=== PATIENT | female | born 1995 | race American Indian/Alaskan Native ===

== ENCOUNTER 2017-02-01 12:37 | Inpatient (IN) | payer MEDICAID ==
[2017-02-01] MEDS ORDERED: LACTATED RINGERS 1,000 ML ONE (12:54)
[2017-02-01] MEDS ORDERED: BRETHINE SUB-Q PRN (13:01)
[2017-02-01] MEDS ORDERED: XYLOCAINE 2% INFILTRATI ONE ×2 (13:01→19:11)
[2017-02-01] MEDS ORDERED: ZOFRAN IV PRN (13:01)
[2017-02-01] MEDS ORDERED: ePHEDrine SULFATE IV PRN ×2 (13:01→16:05)
[2017-02-01] MEDS ORDERED: SUBLIMAZE IV PRN (13:01)
[2017-02-01] MEDS ORDERED: POLYCILLIN/NS 2 GM/100 ML 2 GM/100 ML BAG IV ONE (13:01)
[2017-02-01] MEDS ORDERED: STADOL IV PRN (13:01)
[2017-02-01] MEDS ORDERED: MINERAL OIL PO PRN (13:01)
--- NOTE | 2017-02-01 13:11 | History and Physical Report ---
History of Present Illness Date of examination: 02/01/17 Date of admission: 02/01/17 12:37 Chief complaint: Patient sent to hospital from office for labor. Patient is GBS + and desires epidural. History of present illness: EDC Calculations by LMP LMP: 01/31/2017 Past History : 2 Term Births: 1 Premature Births: 0 Living Children: 1 Para: 1 Mult. Births: 0 Prev : 0 Prev. attempt? 0 Aborta: 0 Elect. Ab: 0 Spont. 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 of genital herpes: no Partner hx. of genital herpes: no Genetic History Congenital Heart Defect: Mom: no Dad: no Lea Disease: Mom: no Dad: no Thalassemia Mom: no Dad: no Neural Tube Defect Mom: no Dad: no Down's Syndrome Mom: no Dad: no Estevan-Sachs Mom: no Dad: no Sickle Cell Disease/Trait Mom: no Dad: no Hemophilia Mom: no Dad: no Muscular Dystrophy Mom: no Dad: no Cystic Fibrosis Mom: no Dad: no Fowler Chorea Mom: no Dad: no Mental Retardation Mom: no Dad: no Fragile X Mom: no Dad: no Other Genetic/Chromosomal Disorder Mom: no Dad: no Child w/other defect Mom: no Dad: no Enviromental Exposures Xray Exposure: no Medication, drug, or alcohol use since LMP: no Chemical/Other Exposure: no Exposure to Cat Liter: no Hx of Parvovirus (Fifth Disease): no Active Medications: PROMETHAZINE HCL 12.5 MG TABS (PROMETHAZINE HCL) 1 po q6 prn nausea FORMULA 27-1 MG ORAL TABS ( VIT-FE FUMARATE-FA) 1 po q day as directed TABS ( VIT-FE FUMARATE-FA TABS) Current Allergies: No known allergies Past History Past Medical History: no pertinent history - Obstetrical History Expected Date of Delivery: 01/31/17 Actual Gestation: 40 Week(s) 1 Day(s) : 2 Para: 1 Hx # Term Pregnancies: 1 Number of Pregnancies: 0 Spontaneous Abortions: 0 Induced : 0 Number of Living Children: 1 Medications and Allergies Allergies Allergy/AdvReac Type Severity Reaction Status Date / Time No Known Allergies Allergy Verified 02/01/17 13:00 Review of Systems All systems: negative - Physical Exam Breasts: Positive: normal Cardiovascular: Regular rate Lungs: Positive: Clear to auscultation, Normal air movement Abdomen: Positive: normal appearance, soft, normal bowel sounds Genitourinary (Female): Positive: normal external genitalia, normal perenium Vulva: both: normal Vagina: Positive: normal moisture Uterus: Positive: normal size, normal contour Anus/Rectum: Positive: normal perianal skin Extremities: Positive: normal Deep Tendon Reflex Grade: Normal +2 - Obstetrical FHR: auscultation normal Uterine Contraction Monitor Mode: External Cervical Dilatation: 6.5 (IOB) Cervical Effacement Percentage: 50 station: -2 Uterine Contraction Pattern: Irregular Uterine Contraction Intensity: Mild Results All other labs normal. Laboratory Data-Patient Name: TODD DIETRICH Test Date Result Blood Type 09/06/2016 O Rh 09/06/2016 Positive Antibody Screen negative Rubella 09/06/2016 immune Serology (RPR) 09/06/2016 nonreactive HBsAg 09/06/2016 Negative Hemoglobin 10/12/2016 10.4 Hematocrit 10/12/2016 32.8 Platelets 09/06/2016 279 [id number] Chlamydia DNA 08/21/2016 Negative GC DNA/Culture 08/21/2016 Urine Culture 09/06/2016 Final report Group B Strep cult Positive PAP 08/21/2016 Normal, Satisfactory HIV 09/06/2016 Negative AFP/Quad Screen Glucola Test 3hr GTT (Fasting) 1 hr 2 hr 3 hr OPTIONAL LABS-Patient Name:TODD DIETRICH Test Date Result Varicella Ab Sickle Cell 09/06/2016 Negative PPD Fibronectin Cystic Fibrosis Parvovirus TSH Free T4 Hepatitis C ALT AST Uric Acid Creatinine 24 hr Urine Protein Assessment and Plan 21y/o @ 40+1 weeks, patient sent from office in labor, GBS +. Orders in EMR. Plan for pitocin after second dose of antibiotics. - Patient Problems (1) Active labor at term Current Visit: Yes Status: Acute (2) GBS carrier Current Visit: Yes Status: Acute (3) 40 weeks gestation of Current Visit: Yes Status: Acute
[2017-02-01] MEDS: LACTATED RINGERS 1,000 ML IV SCH ×3 (13:33→19:29)
[2017-02-01 13:49] LABS: Hemoglobin 9.5 gm/dl (10.1-14.3); Mean Corpuscular HGB Conc 32 % (30-34); Mean Corpuscular Hemoglobin 25 pg (28-32); Mean Corpuscular Volume 79 fl (79-97); Platelet Count 236 K/mm3 (140-440); Red Blood Count 3.78 M/mm3 (3.65-5.03); Red Cell Distribution Width 16.4 % (13.2-15.2); White Blood Count 15.3 K/mm3 (4.5-11.0)
[2017-02-01] MEDS ORDERED: PITOCin 20 UNIT in NACL 0.9% 1000 ML 998 ML IV SCH (14:00)
[2017-02-01] MEDS ORDERED: ePHEDrine SULFATE ONE (15:04)
[2017-02-01] MEDS ORDERED: NARCAN 2 MG/2 ML IV PRN (16:05)
--- NOTE | 2017-02-01 16:05 | Anesthesia Consultation ---
Anesthesia Consult and Med Hx Date of service: 02/01/17 - Airway Anesthetic Teeth Evaluation: Good ROM Head & Neck: Adequate Mental/Hyoid Distance: Adequate Mallampati Class: Class II Intubation Access Assessment: Probably Good - Pre-Operative Health Status ASA Pre-Surgery Classification: ASA2 Proposed Anesthetic Plan: Epidural, Spinal - Pulmonary Hx Asthma: No COPD: No Hx Pneumonia: No - Cardiovascular System Hx Hypertension: No - Central Nervous System Hx Seizures: No Hx Psychiatric Problems: No - Endocrine Hx Renal Disease: No Hx End Stage Renal Disease: No Hx Hypothyroidism: No Hx Hyperthyroidism: No - Hematic Hx Anemia: No Hx Sickle Cell Disease: No - Other Systems Hx Alcohol Use: No
[2017-02-01] MEDS ORDERED: fentaNYL-BUPIV 2 MCG/ML-0.125% 200 MCG/100 ML BAG EPIDURAL SCH (17:00)
[2017-02-01] MEDS: POLYCILLIN/NS 1 GM/50 ML 1 GM/50 ML BAG IV SCH ×2 (17:35→21:59)
[2017-02-01] MEDS ORDERED: PITOCin/NS 30 UNIT/500ML 30,000 MILLIUNITS/500 ML BAG IV ONE (18:14)
--- NOTE | 2017-02-01 18:15 | Progress Note ---
Assessment and Plan - Patient Problems (1) 40 weeks gestation of Current Visit: Yes Status: Acute Plan to address problem: Start Pitocin She has now received her 2nd dose of antibiotics Hold SROM until head applied to cervix to prevent cord prolapse Subjective - Subjective Date of service: 02/01/17 Patient reports: new complaints Objective - Vital Signs Vital Signs: Vital Signs - 12hr 02/01/17 02/01/17 02/01/17 13:13 13:17 13:18 Temperature 98.3 F Pulse Rate 94 H 95 H Pulse Rate [ 103 H Right From Monitor] Respiratory 16 Rate Blood Pressure 104/57 Blood Pressure 104/54 [Left Arm] O2 Sat by Pulse 98 100 99 Oximetry 02/01/17 02/01/17 02/01/17 13:39 13:43 13:44 Temperature Pulse Rate 76 80 74 Pulse Rate [ Right From Monitor] Respiratory Rate Blood Pressure 103/68 Blood Pressure [Left Arm] O2 Sat by Pulse 99 99 Oximetry 02/01/17 02/01/17 02/01/17 13:49 13:54 13:59 Temperature Pulse Rate 74 74 77 Pulse Rate [ Right From Monitor] Respiratory Rate Blood Pressure Blood Pressure [Left Arm] O2 Sat by Pulse 99 99 100 Oximetry 02/01/17 02/01/17 02/01/17 14:04 14:09 14:14 Temperature Pulse Rate 87 77 75 Pulse Rate [ Right From Monitor] Respiratory Rate Blood Pressure 107/65 Blood Pressure [Left Arm] O2 Sat by Pulse 100 100 100 Oximetry 02/01/17 02/01/17 02/01/17 14:19 14:24 14:29 Temperature Pulse Rate 80 72 78 Pulse Rate [ Right From Monitor] Respiratory Rate Blood Pressure Blood Pressure [Left Arm] O2 Sat by Pulse 100 100 100 Oximetry 02/01/17 02/01/17 02/01/17 14:34 14:39 14:43 Temperature Pulse Rate 78 75 75 Pulse Rate [ Right From Monitor] Respiratory Rate Blood Pressure 113/71 Blood Pressure [Left Arm] O2 Sat by Pulse 100 100 Oximetry 02/01/17 02/01/17 02/01/17 14:44 15:00 15:05 Temperature Pulse Rate 76 72 77 Pulse Rate [ Right From Monitor] Respiratory Rate Blood Pressure Blood Pressure [Left Arm] O2 Sat by Pulse 100 100 100 Oximetry 02/01/17 02/01/17 02/01/17 15:10 15:13 15:15 Temperature Pulse Rate 66 63 70 Pulse Rate [ Right From Monitor] Respiratory Rate Blood Pressure 117/71 Blood Pressure [Left Arm] O2 Sat by Pulse 100 100 Oximetry 02/01/17 02/01/17 02/01/17 15:20 15:25 15:30 Temperature Pulse Rate 67 72 70 Pulse Rate [ Right From Monitor] Respiratory Rate Blood Pressure Blood Pressure [Left Arm] O2 Sat by Pulse 100 100 100 Oximetry 02/01/17 02/01/17 02/01/17 15:35 15:40 15:43 Temperature Pulse Rate 65 72 82 Pulse Rate [ Right From Monitor] Respiratory Rate Blood Pressure 117/75 Blood Pressure [Left Arm] O2 Sat by Pulse 100 100 Oximetry 02/01/17 02/01/17 02/01/17 15:46 15:47 15:49 Temperature Pulse Rate 63 61 63 Pulse Rate [ Right From Monitor] Respiratory Rate Blood Pressure 110/72 107/63 Blood Pressure [Left Arm] O2 Sat by Pulse 100 Oximetry 02/01/17 02/01/17 02/01/17 15:51 15:54 15:56 Temperature Pulse Rate 63 66 72 Pulse Rate [ Right From Monitor] Respiratory Rate Blood Pressure 107/66 119/59 117/62 Blood Pressure [Left Arm] O2 Sat by Pulse 100 100 Oximetry 02/01/17 02/01/17 02/01/17 15:57 15:59 16:01 Temperature Pulse Rate 88 110 H 76 Pulse Rate [ Right From Monitor] Respiratory Rate Blood Pressure 119/64 118/62 118/65 Blood Pressure [Left Arm] O2 Sat by Pulse 100 Oximetry 02/01/17 02/01/17 02/01/17 16:04 16:06 16:11 Temperature Pulse Rate 63 70 100 H Pulse Rate [ Right From Monitor] Respiratory Rate Blood Pressure 113/59 112/63 Blood Pressure [Left Arm] O2 Sat by Pulse 100 100 Oximetry 02/01/17 02/01/17 02/01/17 16:16 16:21 16:26 Temperature Pulse Rate 89 66 68 Pulse Rate [ Right From Monitor] Respiratory Rate Blood Pressure Blood Pressure [Left Arm] O2 Sat by Pulse 100 100 100 Oximetry 02/01/17 02/01/17 02/01/17 16:31 16:36 16:39 Temperature Pulse Rate 58 L 75 63 Pulse Rate [ Right From Monitor] Respiratory Rate Blood Pressure 111/53 Blood Pressure [Left Arm] O2 Sat by Pulse 100 100 Oximetry 02/01/17 02/01/17 02/01/17 16:41 16:46 16:51 Temperature Pulse Rate 76 65 69 Pulse Rate [ Right From Monitor] Respiratory Rate Blood Pressure Blood Pressure [Left Arm] O2 Sat by Pulse 100 100 100 Oximetry 02/01/17 02/01/17 02/01/17 16:56 17:01 17:06 Temperature Pulse Rate 83 87 60 Pulse Rate [ Right From Monitor] Respiratory Rate Blood Pressure Blood Pressure [Left Arm] O2 Sat by Pulse 100 100 100 Oximetry 02/01/17 02/01/17 02/01/17 17:08 17:11 17:16 Temperature Pulse Rate 65 91 H 85 Pulse Rate [ Right From Monitor] Respiratory Rate Blood Pressure 112/69 Blood Pressure [Left Arm] O2 Sat by Pulse 100 100 Oximetry 02/01/17 02/01/17 02/01/17 17:21 17:26 17:31 Temperature Pulse Rate 99 H 76 93 H Pulse Rate [ Right From Monitor] Respiratory Rate Blood Pressure Blood Pressure [Left Arm] O2 Sat by Pulse 100 100 100 Oximetry 02/01/17 02/01/17 02/01/17 17:36 17:38 17:41 Temperature Pulse Rate 81 90 82 Pulse Rate [ Right From Monitor] Respiratory Rate Blood Pressure 109/66 Blood Pressure [Left Arm] O2 Sat by Pulse 100 100 Oximetry 02/01/17 02/01/17 02/01/17 17:46 17:51 17:56 Temperature Pulse Rate 90 92 H 93 H Pulse Rate [ Right From Monitor] Respiratory Rate Blood Pressure Blood Pressure [Left Arm] O2 Sat by Pulse 100 100 100 Oximetry 02/01/17 02/01/17 02/01/17 18:01 18:06 18:08 Temperature Pulse Rate 100 H 92 H 93 H Pulse Rate [ Right From Monitor] Respiratory Rate Blood Pressure 120/64 Blood Pressure [Left Arm] O2 Sat by Pulse 100 100 Oximetry 02/01/17 18:09 Temperature Pulse Rate 65 Pulse Rate [ Right From Monitor] Respiratory Rate Blood Pressure Blood Pressure [Left Arm] O2 Sat by Pulse 93 Oximetry - Exam Breasts: deferred Lungs: Normal air movement Abdomen: Present: normal appearance Vulva: both: normal FHR: category 1 Uterine Contraction Monitor Mode: External Cervical Dilatation: 6.5 Cervical Effacement Percentage: 80 station: -2, asynclitic Uterine Contraction Pattern: Irregular - Labs Labs: Abnormal Labs 02/01/17 13:26 WBC 15.3 H Hgb 9.5 L Hct 30.0 L MCH 25 L RDW 16.4 H Laboratory Results - last 24 hr 02/01/17 02/01/17 13:26 13:26 WBC 15.3 H RBC 3.78 Hgb 9.5 L Hct 30.0 L MCV 79 MCH 25 L MCHC 32 RDW 16.4 H Plt Count 236 Blood Type O POSITIVE Antibody Screen Negative
[2017-02-01] MEDS ORDERED: PITOCin 30 UNIT in NACL 0.9% 500 ML 497 ML IV SCH (19:00)
--- NOTE | 2017-02-01 21:43 | Progress Note ---
Assessment and Plan - Patient Problems (1) 40 weeks gestation of Current Visit: Yes Status: Acute Plan to address problem: Anticipate vaginal delivery Subjective - Subjective Date of service: 02/01/17 Patient reports: movement normal, contractions, no new complaints Objective - Vital Signs Vital Signs: Vital Signs - 12hr 02/01/17 02/01/17 02/01/17 13:13 13:17 13:18 Temperature 98.3 F Pulse Rate 94 H 95 H Pulse Rate [ 103 H Right From Monitor] Respiratory 16 Rate Blood Pressure 104/57 Blood Pressure 104/54 [Left Arm] O2 Sat by Pulse 98 100 99 Oximetry 02/01/17 02/01/17 02/01/17 13:39 13:43 13:44 Temperature Pulse Rate 76 80 74 Pulse Rate [ Right From Monitor] Respiratory Rate Blood Pressure 103/68 Blood Pressure [Left Arm] O2 Sat by Pulse 99 99 Oximetry 02/01/17 02/01/17 02/01/17 13:49 13:54 13:59 Temperature Pulse Rate 74 74 77 Pulse Rate [ Right From Monitor] Respiratory Rate Blood Pressure Blood Pressure [Left Arm] O2 Sat by Pulse 99 99 100 Oximetry 02/01/17 02/01/17 02/01/17 14:04 14:09 14:14 Temperature Pulse Rate 87 77 75 Pulse Rate [ Right From Monitor] Respiratory Rate Blood Pressure 107/65 Blood Pressure [Left Arm] O2 Sat by Pulse 100 100 100 Oximetry 02/01/17 02/01/17 02/01/17 14:19 14:24 14:29 Temperature Pulse Rate 80 72 78 Pulse Rate [ Right From Monitor] Respiratory Rate Blood Pressure Blood Pressure [Left Arm] O2 Sat by Pulse 100 100 100 Oximetry 02/01/17 02/01/17 02/01/17 14:34 14:39 14:43 Temperature Pulse Rate 78 75 75 Pulse Rate [ Right From Monitor] Respiratory Rate Blood Pressure 113/71 Blood Pressure [Left Arm] O2 Sat by Pulse 100 100 Oximetry 02/01/17 02/01/17 02/01/17 14:44 15:00 15:05 Temperature Pulse Rate 76 72 77 Pulse Rate [ Right From Monitor] Respiratory Rate Blood Pressure Blood Pressure [Left Arm] O2 Sat by Pulse 100 100 100 Oximetry 02/01/17 02/01/17 02/01/17 15:10 15:13 15:15 Temperature Pulse Rate 66 63 70 Pulse Rate [ Right From Monitor] Respiratory Rate Blood Pressure 117/71 Blood Pressure [Left Arm] O2 Sat by Pulse 100 100 Oximetry 02/01/17 02/01/17 02/01/17 15:20 15:25 15:30 Temperature Pulse Rate 67 72 70 Pulse Rate [ Right From Monitor] Respiratory Rate Blood Pressure Blood Pressure [Left Arm] O2 Sat by Pulse 100 100 100 Oximetry 02/01/17 02/01/17 02/01/17 15:35 15:40 15:43 Temperature Pulse Rate 65 72 82 Pulse Rate [ Right From Monitor] Respiratory Rate Blood Pressure 117/75 Blood Pressure [Left Arm] O2 Sat by Pulse 100 100 Oximetry 02/01/17 02/01/17 02/01/17 15:46 15:47 15:49 Temperature Pulse Rate 63 61 63 Pulse Rate [ Right From Monitor] Respiratory Rate Blood Pressure 110/72 107/63 Blood Pressure [Left Arm] O2 Sat by Pulse 100 Oximetry 02/01/17 02/01/17 02/01/17 15:51 15:54 15:56 Temperature Pulse Rate 63 66 72 Pulse Rate [ Right From Monitor] Respiratory Rate Blood Pressure 107/66 119/59 117/62 Blood Pressure [Left Arm] O2 Sat by Pulse 100 100 Oximetry 02/01/17 02/01/17 02/01/17 15:57 15:59 16:01 Temperature Pulse Rate 88 110 H 76 Pulse Rate [ Right From Monitor] Respiratory Rate Blood Pressure 119/64 118/62 118/65 Blood Pressure [Left Arm] O2 Sat by Pulse 100 Oximetry 02/01/17 02/01/17 02/01/17 16:04 16:06 16:11 Temperature Pulse Rate 63 70 100 H Pulse Rate [ Right From Monitor] Respiratory Rate Blood Pressure 113/59 112/63 Blood Pressure [Left Arm] O2 Sat by Pulse 100 100 Oximetry 02/01/17 02/01/17 02/01/17 16:16 16:21 16:26 Temperature Pulse Rate 89 66 68 Pulse Rate [ Right From Monitor] Respiratory Rate Blood Pressure Blood Pressure [Left Arm] O2 Sat by Pulse 100 100 100 Oximetry 02/01/17 02/01/17 02/01/17 16:31 16:36 16:39 Temperature Pulse Rate 58 L 75 63 Pulse Rate [ Right From Monitor] Respiratory Rate Blood Pressure 111/53 Blood Pressure [Left Arm] O2 Sat by Pulse 100 100 Oximetry 02/01/17 02/01/17 02/01/17 16:41 16:46 16:51 Temperature Pulse Rate 76 65 69 Pulse Rate [ Right From Monitor] Respiratory Rate Blood Pressure Blood Pressure [Left Arm] O2 Sat by Pulse 100 100 100 Oximetry 02/01/17 02/01/17 02/01/17 16:56 17:01 17:06 Temperature Pulse Rate 83 87 60 Pulse Rate [ Right From Monitor] Respiratory Rate Blood Pressure Blood Pressure [Left Arm] O2 Sat by Pulse 100 100 100 Oximetry 02/01/17 02/01/17 02/01/17 17:08 17:11 17:16 Temperature Pulse Rate 65 91 H 85 Pulse Rate [ Right From Monitor] Respiratory Rate Blood Pressure 112/69 Blood Pressure [Left Arm] O2 Sat by Pulse 100 100 Oximetry 02/01/17 02/01/17 02/01/17 17:21 17:26 17:31 Temperature Pulse Rate 99 H 76 93 H Pulse Rate [ Right From Monitor] Respiratory Rate Blood Pressure Blood Pressure [Left Arm] O2 Sat by Pulse 100 100 100 Oximetry 02/01/17 02/01/17 02/01/17 17:36 17:38 17:41 Temperature Pulse Rate 81 90 82 Pulse Rate [ Right From Monitor] Respiratory Rate Blood Pressure 109/66 Blood Pressure [Left Arm] O2 Sat by Pulse 100 100 Oximetry 02/01/17 02/01/17 02/01/17 17:46 17:51 17:56 Temperature Pulse Rate 90 92 H 93 H Pulse Rate [ Right From Monitor] Respiratory Rate Blood Pressure Blood Pressure [Left Arm] O2 Sat by Pulse 100 100 100 Oximetry 02/01/17 02/01/17 02/01/17 18:01 18:06 18:08 Temperature Pulse Rate 100 H 92 H 93 H Pulse Rate [ Right From Monitor] Respiratory Rate Blood Pressure 120/64 Blood Pressure [Left Arm] O2 Sat by Pulse 100 100 Oximetry 02/01/17 02/01/17 02/01/17 18:09 18:11 18:16 Temperature Pulse Rate 65 90 65 Pulse Rate [ Right From Monitor] Respiratory Rate Blood Pressure Blood Pressure [Left Arm] O2 Sat by Pulse 93 100 100 Oximetry 02/01/17 02/01/17 02/01/17 18:21 18:26 18:31 Temperature Pulse Rate 78 74 97 H Pulse Rate [ Right From Monitor] Respiratory Rate Blood Pressure Blood Pressure [Left Arm] O2 Sat by Pulse 100 100 100 Oximetry 02/01/17 02/01/17 02/01/17 18:36 18:38 18:41 Temperature Pulse Rate 96 H 92 H 69 Pulse Rate [ Right From Monitor] Respiratory Rate Blood Pressure 118/71 Blood Pressure [Left Arm] O2 Sat by Pulse 100 100 Oximetry 02/01/17 02/01/17 02/01/17 18:46 18:51 18:56 Temperature Pulse Rate 96 H 98 H 74 Pulse Rate [ Right From Monitor] Respiratory Rate Blood Pressure Blood Pressure [Left Arm] O2 Sat by Pulse 100 100 100 Oximetry 02/01/17 02/01/17 02/01/17 19:01 19:06 19:08 Temperature Pulse Rate 94 H 79 100 H Pulse Rate [ Right From Monitor] Respiratory Rate Blood Pressure 114/69 Blood Pressure [Left Arm] O2 Sat by Pulse 100 100 Oximetry 02/01/17 02/01/17 02/01/17 19:11 19:16 19:21 Temperature Pulse Rate 90 83 69 Pulse Rate [ Right From Monitor] Respiratory Rate Blood Pressure Blood Pressure [Left Arm] O2 Sat by Pulse 100 100 100 Oximetry 02/01/17 02/01/17 02/01/17 19:26 19:31 19:36 Temperature Pulse Rate 102 H 93 H 103 H Pulse Rate [ Right From Monitor] Respiratory Rate Blood Pressure Blood Pressure [Left Arm] O2 Sat by Pulse 100 100 100 Oximetry 02/01/17 02/01/17 02/01/17 19:37 19:41 19:46 Temperature Pulse Rate 100 H 83 86 Pulse Rate [ Right From Monitor] Respiratory Rate Blood Pressure 121/64 Blood Pressure [Left Arm] O2 Sat by Pulse 100 100 Oximetry 02/01/17 02/01/17 02/01/17 19:51 19:56 20:01 Temperature Pulse Rate 71 88 91 H Pulse Rate [ Right From Monitor] Respiratory Rate Blood Pressure Blood Pressure [Left Arm] O2 Sat by Pulse 100 100 100 Oximetry 02/01/17 02/01/17 02/01/17 20:06 20:07 20:11 Temperature Pulse Rate 88 75 79 Pulse Rate [ Right From Monitor] Respiratory Rate Blood Pressure 114/62 Blood Pressure [Left Arm] O2 Sat by Pulse 100 100 Oximetry 02/01/17 02/01/17 02/01/17 20:16 20:21 20:26 Temperature Pulse Rate 86 121 H 105 H Pulse Rate [ Right From Monitor] Respiratory Rate Blood Pressure Blood Pressure [Left Arm] O2 Sat by Pulse 100 100 100 Oximetry 02/01/17 02/01/17 02/01/17 20:31 20:36 20:38 Temperature Pulse Rate 103 H 78 88 Pulse Rate [ Right From Monitor] Respiratory Rate Blood Pressure 108/64 Blood Pressure [Left Arm] O2 Sat by Pulse 100 100 Oximetry 02/01/17 02/01/17 02/01/17 20:41 20:46 20:51 Temperature Pulse Rate 93 H 84 88 Pulse Rate [ Right From Monitor] Respiratory Rate Blood Pressure Blood Pressure [Left Arm] O2 Sat by Pulse 100 100 100 Oximetry 02/01/17 02/01/17 02/01/17 20:53 20:56 21:01 Temperature Pulse Rate 89 100 H 81 Pulse Rate [ Right From Monitor] Respiratory Rate Blood Pressure Blood Pressure [Left Arm] O2 Sat by Pulse 69 L 100 100 Oximetry 02/01/17 02/01/17 02/01/17 21:06 21:08 21:11 Temperature Pulse Rate 84 77 81 Pulse Rate [ Right From Monitor] Respiratory Rate Blood Pressure 132/58 Blood Pressure [Left Arm] O2 Sat by Pulse 100 100 Oximetry 02/01/17 02/01/17 02/01/17 21:16 21:21 21:26 Temperature Pulse Rate 76 76 89 Pulse Rate [ Right From Monitor] Respiratory Rate Blood Pressure Blood Pressure [Left Arm] O2 Sat by Pulse 100 100 100 Oximetry 02/01/17 02/01/17 02/01/17 21:27 21:31 21:32 Temperature Pulse Rate 99 H 89 70 Pulse Rate [ Right From Monitor] Respiratory Rate Blood Pressure Blood Pressure [Left Arm] O2 Sat by Pulse 67 L 72 L 69 L Oximetry 02/01/17 21:38 Temperature Pulse Rate 84 Pulse Rate [ Right From Monitor] Respiratory Rate Blood Pressure 136/67 Blood Pressure [Left Arm] O2 Sat by Pulse Oximetry - Exam Breasts: deferred Lungs: Clear to auscultation Abdomen: Present: normal appearance Vulva: both: normal Uterus: Present: normal FHR: category 1 Cervical Dilatation: 8 Cervical Effacement Percentage: 100 (verbal consent obtainef for AROM, AROM performed, clear fluid) station: 0 Uterine Contraction Pattern: Regular - Labs Labs: Abnormal Labs 02/01/17 13:26 WBC 15.3 H Hgb 9.5 L Hct 30.0 L MCH 25 L RDW 16.4 H Laboratory Results - last 24 hr 02/01/17 02/01/17 13:26 13:26 WBC 15.3 H RBC 3.78 Hgb 9.5 L Hct 30.0 L MCV 79 MCH 25 L MCHC 32 RDW 16.4 H Plt Count 236 Blood Type O POSITIVE Antibody Screen Negative
--- NOTE | 2017-02-02 00:22 | Procedure Note ---
OB Delivery Note - Delivery Date of Delivery: 02/02/17 Surgeon: LLUVIA MCCLAIN Estimated blood loss: 200cc - Vaginal Delivery presentation: vertex Delivery position: OA Delivery augmentation: rupture of membranes, pitocin Delivery monitor: external FHT, external uterine Route of delivery: Delivery placenta: spontaneous (intact) Episiotomy: none Delivery laceration: none Anesthesia: local, intravenous, epidural - Infant A at 1 minute: 9 at 5 minutes: 9 Gender: Female (6-11)
[2017-02-02] MEDS ORDERED: TORADOL IV ONE (01:15)
[2017-02-02] MEDS: MOTRIN PO SCH ×3 (02:10→18:28)
[2017-02-02] MEDS ORDERED: HEMABATE IM PRN (02:27)
[2017-02-02] MEDS ORDERED: LANSINOH TP PRN (02:27)
[2017-02-02] MEDS ORDERED: METHERGINE IM PRN (02:27)
[2017-02-02] MEDS ORDERED: ZOFRAN IV PRN (02:27)
[2017-02-02] MEDS ORDERED: TUCKS PAD TP PRN (02:27)
[2017-02-02] MEDS ORDERED: PITOCin 20 UNIT in NACL 0.9% 1000 ML 998 ML IV SCH (02:27)
[2017-02-02] MEDS ORDERED: TYLENOL PO PRN (02:27)
[2017-02-02] MEDS ORDERED: PHENERGAN PO PRN (02:27)
[2017-02-02] MEDS ORDERED: PHENERGAN PR PRN (02:27)
[2017-02-02] MEDS ORDERED: BENADRYL PO PRN (02:27)
[2017-02-02] MEDS ORDERED: PERCOCET 5/325 PO PRN (02:27)
[2017-02-02] MEDS ORDERED: TORADOL IV PRN (02:27)
[2017-02-02] MEDS ORDERED: DERMOPLAST TP PRN (02:27)
[2017-02-02] MEDS ORDERED: DULCOLAX PR PRN (02:27)
[2017-02-02] MEDS ORDERED: MILK OF MAGNESIA PO PRN (02:27)
[2017-02-02] MEDS ORDERED: SODIUM CHLORIDE FLUSH SYRINGE 10 ML IV PRN (02:27)
[2017-02-02] MEDS ORDERED: CYTOTEC PR PRN (02:27)
--- NOTE | 2017-02-02 07:56 | Progress Note ---
Assessment and Plan - Patient Problems (1) Spontaneous vaginal delivery Onset Date: ~02/01/17 Current Visit: Yes Status: Acute Plan to address problem: Pt w/o complaint VSS FF below umb Lochia small perineum intact. H&H pending Doing well s/p vag deli P: continue pathway (2) depression, current hospitalization Current Visit: Yes Status: Chronic Plan to address problem: Pt voiced concerns about PPD Started on Zoloft 50mg po QD consult to be done today RX for d/c on chart Subjective - Subjective Date of service: 02/02/17 (agrees to MH consult) Patient reports: appetite normal, voiding normally, pain well controlled, ambulating normally [place]: doing well Objective - Vital Signs Latest vital signs: Vital Signs Temp Pulse Pulse Resp BP BP BP 02/02/17 04:00 98.6 F 77 24 111/54 02/02/17 02:10 98.6 F 74 20 110/53 02/02/17 01:32 104 H 126/60 02/02/17 01:17 78 114/69 02/02/17 01:02 102 H 122/71 02/02/17 00:47 76 119/72 02/02/17 00:32 85 117/63 02/02/17 00:17 86 132/71 02/02/17 00:02 100 H 135/77 02/01/17 23:35 80 02/01/17 23:29 89 02/01/17 23:25 90 02/01/17 23:19 83 02/01/17 23:14 84 02/01/17 23:09 92 H 02/01/17 23:08 93 H 131/72 02/01/17 23:05 107 H 02/01/17 22:59 92 H 02/01/17 22:54 94 H 02/01/17 22:49 114 H 02/01/17 22:44 92 H 02/01/17 22:40 83 02/01/17 22:37 81 123/74 02/01/17 22:34 75 02/01/17 22:29 80 02/01/17 22:24 83 02/01/17 22:19 75 02/01/17 22:14 80 02/01/17 22:09 85 02/01/17 22:07 85 118/57 02/01/17 22:04 87 02/01/17 21:59 85 02/01/17 21:54 119 H 02/01/17 21:49 72 02/01/17 21:44 75 02/01/17 21:39 02/01/17 21:38 84 136/67 02/01/17 21:32 70 02/01/17 21:31 89 02/01/17 21:27 99 H 02/01/17 21:26 89 02/01/17 21:21 76 02/01/17 21:16 76 02/01/17 21:11 81 02/01/17 21:08 77 132/58 02/01/17 21:06 84 02/01/17 21:01 81 02/01/17 20:56 100 H 02/01/17 20:53 89 02/01/17 20:51 88 02/01/17 20:46 84 02/01/17 20:41 93 H 02/01/17 20:38 88 108/64 02/01/17 20:36 78 02/01/17 20:31 103 H 02/01/17 20:26 105 H 02/01/17 20:21 121 H 02/01/17 20:16 86 02/01/17 20:11 79 02/01/17 20:07 75 114/62 02/01/17 20:06 88 02/01/17 20:01 91 H 02/01/17 19:56 88 02/01/17 19:51 71 02/01/17 19:46 86 02/01/17 19:41 83 02/01/17 19:37 100 H 121/64 02/01/17 19:36 103 H 02/01/17 19:31 93 H 02/01/17 19:26 102 H 02/01/17 19:21 69 02/01/17 19:16 83 02/01/17 19:11 90 02/01/17 19:08 100 H 114/69 02/01/17 19:06 79 02/01/17 19:01 94 H 02/01/17 18:56 74 02/01/17 18:51 98 H 02/01/17 18:46 96 H 02/01/17 18:41 69 02/01/17 18:38 92 H 118/71 02/01/17 18:36 96 H 02/01/17 18:31 97 H 02/01/17 18:26 74 02/01/17 18:21 78 02/01/17 18:16 65 02/01/17 18:11 90 02/01/17 18:09 65 02/01/17 18:08 93 H 120/64 02/01/17 18:06 92 H 02/01/17 18:01 100 H 02/01/17 17:56 93 H 02/01/17 17:51 92 H 02/01/17 17:46 90 02/01/17 17:41 82 02/01/17 17:38 90 109/66 02/01/17 17:36 81 02/01/17 17:31 93 H 02/01/17 17:26 76 02/01/17 17:21 99 H 02/01/17 17:16 85 02/01/17 17:11 91 H 02/01/17 17:08 65 112/69 02/01/17 17:06 60 02/01/17 17:01 87 02/01/17 16:56 83 02/01/17 16:51 69 02/01/17 16:46 65 02/01/17 16:41 76 02/01/17 16:39 63 111/53 02/01/17 16:36 75 02/01/17 16:31 58 L 02/01/17 16:26 68 02/01/17 16:21 66 02/01/17 16:16 89 02/01/17 16:11 100 H 02/01/17 16:06 70 112/63 02/01/17 16:04 63 113/59 02/01/17 16:01 76 118/65 02/01/17 15:59 110 H 118/62 02/01/17 15:57 88 119/64 02/01/17 15:56 72 117/62 02/01/17 15:54 66 119/59 02/01/17 15:51 63 107/66 02/01/17 15:49 63 107/63 02/01/17 15:47 61 110/72 02/01/17 15:46 63 02/01/17 15:43 82 117/75 02/01/17 15:40 72 02/01/17 15:35 65 02/01/17 15:30 70 02/01/17 15:25 72 02/01/17 15:20 67 02/01/17 15:15 70 02/01/17 15:13 63 117/71 02/01/17 15:10 66 02/01/17 15:05 77 02/01/17 15:00 72 02/01/17 14:44 76 02/01/17 14:43 75 113/71 02/01/17 14:39 75 02/01/17 14:34 78 02/01/17 14:29 78 02/01/17 14:24 72 02/01/17 14:19 80 02/01/17 14:14 75 107/65 02/01/17 14:09 77 02/01/17 14:04 87 02/01/17 13:59 77 02/01/17 13:54 74 02/01/17 13:49 74 02/01/17 13:44 74 02/01/17 13:43 80 103/68 02/01/17 13:39 76 02/01/17 13:18 95 H 02/01/17 13:17 98.3 F 103 H 16 104/54 02/01/17 13:13 94 H 104/57 Pulse Ox 02/02/17 04:00 02/02/17 02:10 02/02/17 01:32 02/02/17 01:17 02/02/17 01:02 02/02/17 00:47 02/02/17 00:32 02/02/17 00:17 02/02/17 00:02 02/01/17 23:35 100 02/01/17 23:29 100 02/01/17 23:25 100 02/01/17 23:19 100 02/01/17 23:14 100 02/01/17 23:09 100 02/01/17 23:08 02/01/17 23:05 100 02/01/17 22:59 100 02/01/17 22:54 100 02/01/17 22:49 100 02/01/17 22:44 100 02/01/17 22:40 100 02/01/17 22:37 02/01/17 22:34 100 02/01/17 22:29 100 02/01/17 22:24 100 02/01/17 22:19 100 02/01/17 22:14 100 02/01/17 22:09 100 02/01/17 22:07 02/01/17 22:04 100 02/01/17 21:59 100 02/01/17 21:54 100 02/01/17 21:49 100 02/01/17 21:44 100 02/01/17 21:39 89 02/01/17 21:38 02/01/17 21:32 69 L 02/01/17 21:31 72 L 02/01/17 21:27 67 L 02/01/17 21:26 100 02/01/17 21:21 100 02/01/17 21:16 100 02/01/17 21:11 100 02/01/17 21:08 02/01/17 21:06 100 02/01/17 21:01 100 02/01/17 20:56 100 02/01/17 20:53 69 L 02/01/17 20:51 100 02/01/17 20:46 100 02/01/17 20:41 100 02/01/17 20:38 02/01/17 20:36 100 02/01/17 20:31 100 02/01/17 20:26 100 02/01/17 20:21 100 02/01/17 20:16 100 02/01/17 20:11 100 02/01/17 20:07 02/01/17 20:06 100 02/01/17 20:01 100 02/01/17 19:56 100 02/01/17 19:51 100 02/01/17 19:46 100 02/01/17 19:41 100 02/01/17 19:37 02/01/17 19:36 100 02/01/17 19:31 100 02/01/17 19:26 100 02/01/17 19:21 100 02/01/17 19:16 100 02/01/17 19:11 100 02/01/17 19:08 02/01/17 19:06 100 02/01/17 19:01 100 02/01/17 18:56 100 02/01/17 18:51 100 02/01/17 18:46 100 02/01/17 18:41 100 02/01/17 18:38 02/01/17 18:36 100 02/01/17 18:31 100 03/31/17 18:26 100 02/01/17 18:21 100 17 18:16 100 17 18:11 100 02/01/17 18:09 93 02/01/17 18:08 02/01/17 18:06 100 02/01/17 18:01 100 17 17:56 100 17 17:51 100 17 17:46 100 17 17:41 100 17 17:38 02/01/17 17:36 100 17 17:31 100 17 17:26 100 17 17:21 100 02/01/17 17:16 100 02/01/17 17:11 100 02/01/17 17:08 02/01/17 17:06 100 02/01/17 17:01 100 02/01/17 16:56 100 02/01/17 16:51 100 02/01/17 16:46 100 02/01/17 16:41 100 02/01/17 16:39 02/01/17 16:36 100 17 16:31 100 02/01/17 16:26 100 02/01/17 16:21 100 02/01/17 16:16 100 02/01/17 16:11 100 02/01/17 16:06 100 02/01/17 16:04 02/01/17 16:01 100 02/01/17 15:59 02/01/17 15:57 02/01/17 15:56 100 02/01/17 15:54 02/01/17 15:51 100 02/01/17 15:49 02/01/17 15:47 17 15:46 100 17 15:43 17 15:40 100 17 15:35 100 17 15:30 100 17 15:25 100 17 15:20 100 17 15:15 100 17 15:13 17 15:10 100 17 15:05 100 17 15:00 100 17 14:44 100 17 14:43 02/01/17 14:39 100 02/01/17 14:34 100 02/01/17 14:29 100 02/01/17 14:24 100 02/01/17 14:19 100 02/01/17 14:14 100 02/01/17 14:09 100 02/01/17 14:04 100 02/01/17 13:59 100 02/01/17 13:54 99 02/01/17 13:49 99 02/01/17 13:44 99 02/01/17 13:43 02/01/17 13:39 99 02/01/17 13:18 99 02/01/17 13:17 100 02/01/17 13:13 98 Intake and Output 02/01/17 02/02/17 02/02/17 22:59 06:59 14:59 Intake Total 2049 550 Output Total 1400 Balance 2049 -850 Intake: IV 2049 Lactated Ringers 1,000 ml 2000 @ 125 mls/hr IV DIRECT ZULMA Rx#:[id number] POLYCILLIN/NS 1 GM/50 ML 50 1 gm In 50 ml @ 100 mls/ hr IV Q4HR ZULMA Rx#: [id number] Oral 300 Intake, Free Water 250 Output: Urine 1400 Void 1400 Other: Total, Intake Amount 300 Total, Output Amount 800 # Voids Void 1 Estimated Blood Loss 200 - Exam Breasts: Present: Cardiovascular: Present: Regular rate Lungs: Present: Clear to auscultation, Normal air movement Abdomen: Present: normal appearance, soft Uterus: Present: normal, fundal height below umbilicus Extremities: Present: normal Deep Tendon Reflex Grade: Normal +2 Incision: Present: normal - Labs Labs: Abnormal lab results 02/01/17 Range/Units 13:26 WBC 15.3 H (4.5-11.0) K/mm3 Hgb 9.5 L (10.1-14.3) gm/dl Hct 30.0 L (30.3-42.9) % MCH 25 L (28-32) pg RDW 16.4 H (13.2-15.2) %
[2017-02-02] MEDS: ZOLOFT PO SCH (11:15)
[2017-02-02] MEDS ORDERED: FLUARIX QUAD 2016-2017(36 MOS+) IM ONE (12:00)
[2017-02-02 14:48] LABS: Hematocrit 29.9 % (30.3-42.9); Hemoglobin 9.3 gm/dl (10.1-14.3)
--- NOTE | 2017-02-02 18:35 | Consultation ---
History of Present Illness - Reason for Consult Reason for consult: psych evaluation - Chief Complaint Chief complaint: 21 year old BF presented to [facility] and gave - we've been asked to evaluate the patient's response after - specifically for depression. The patient's mother was present during the interview as consented by the patient. The patient notes that after the of her second child she noted that the epidural wore off quicker than expected. Secondary to this she felt immense pain that she wasn't prepared for. This combined with just giving led to her feeling a flood of emotions that led to crying- a concern by the staff per family. Her mother notes that the crying was in line with the specific triggers as noted above and didn't seemed concerned over her reaction. The patient notes that she hasn't been depressed prior to the . And now the patient maintains that she doesn't feel depressed. She denies any SI/HI/AH/ VH. She states that she would like to hold on to her baby and wants to breastfeed the child- noting that the baby has latched. She denies any feeling of euphoria or psychosis. No paranoia. After the of her first child the patient and mother note no specific mental health concern. Medications and Allergies Allergies Allergy/AdvReac Type Severity Reaction Status Date / Time No Known Allergies Allergy Verified 02/01/17 13:00 Home Medications Medication Instructions Recorded Confirmed Last Taken Type Vit-Fe Fumar-FA [ 1 tab PO QDAY 02/02/17 02/02/17 12/04/16 History Vitamin] Sertraline [Zoloft] 50 mg PO QDAY #30 tablet 02/02/17 Unknown Rx Active Meds: Active Medications Acetaminophen (Tylenol) 650 mg PO Q4H PRN PRN Reason: Pain MILD(1-3)/Fever >100.5/GILL Benzocaine/Menthol (Dermoplast) 1 spray TP PRN PRN PRN Reason: Episiotomy Pain Bisacodyl (Dulcolax) 10 mg RI BID PRN PRN Reason: Constipation Carboprost Tromethamine (Hemabate) 250 mcg IM ONCE PRN PRN Reason: BLEEDING Diphenhydramine HCl (Benadryl) 25 mg PO Q6H PRN PRN Reason: Itching Diphtheria/Tetanus/Acell Pertussis (Boostrix) 0.5 ml IM .ONCE ONE Stop: 02/03/17 06:01 Oxytocin 20 unit/ Sodium (Chloride) 1,000 mls @ 250 mls/hr IV DIRECT [facility] Ibuprofen (Motrin) 600 mg PO Q6HR [facility] Last Admin: 02/02/17 05:49 Dose: 600 mg Ketorolac Tromethamine (Toradol) 30 mg IV Q6H PRN PRN Reason: Pain, Moderate (4-6) Stop: 02/07/17 02:26 Magnesium Hydroxide (Milk Of Magnesia) 30 ml PO HS PRN PRN Reason: Constipation Methylergonovine Maleate (Methergine) 0.2 mg IM ONCE PRN PRN Reason: Uterine Bleeding Misoprostol (Cytotec) 1,000 mcg RI ONCE PRN PRN Reason: Bleeding Multi-Ingredient Ointment (Lansinoh) 1 applic TP PRN PRN PRN Reason: Sore Nipples Ondansetron HCl (Zofran) 4 mg IV Q8H PRN PRN Reason: Nausea And Vomiting Oxycodone/Acetaminophen (Percocet 5/325) 1 tab PO Q6H PRN PRN Reason: Pain, Moderate (4-6) Promethazine HCl (Phenergan) 25 mg RI Q6H PRN PRN Reason: Nausea And Vomiting Promethazine HCl (Phenergan) 25 mg PO Q6H PRN PRN Reason: Nausea And Vomiting Sertraline HCl (Zoloft) 50 mg PO QDAY [facility] Last Admin: 02/02/17 11:15 Dose: 50 mg Sodium Chloride (Sodium Chloride Flush Syringe 10 Ml) 10 ml IV PRN PRN PRN Reason: LINE FLUSH Witch Sasha/Glycerin (Tucks Pad) 1 each TP PRN PRN PRN Reason: Hemorrhoid/cleansing/soothing Past psychiatric history - Past Medical History Past Surgical History: Other (vaginal delivery) - past Psychiatric treatment and history psychiatric treatment history: inpt: none outpt: none no past psych meds per patient no family psych history no substance history- denies any current substance use no abuse history - Social History Social history: other (lives with mother- who is her support system, 2 children - father is invloved, +working, college education) Mental Status Exam - Vital signs Last Vital Signs Temp 98.2 F 02/02/17 15:34 Pulse 86 02/02/17 15:34 Resp 20 02/02/17 15:34 BP 110/66 02/02/17 15:34 Pulse Ox 100 02/01/17 23:35 - Exam Orientation: time, place, person Affect: normal Mood: appropriate Thought Process: Intact Perceptions: none Speech: normal rate and pattern Concentration: focused Motor activity: normal Level of consciousness: alert Memory: Intact Interaction: cooperative Mini mental status exam(if necessary): 24-30 Results Result Diagrams: 02/02/17 14:19 Abnormal lab results 02/02/17 Range/Units 14:19 Hgb 9.3 L (10.1-14.3) gm/dl Hct 29.9 L (30.3-42.9) % All other labs normal. Assessment and Plan Assessment and plan: 21 year old BF presented to [facility] and gave - we've been asked to evaluate the patient's response after - specifically for depression. the patient denies symptoms of depression at this time. No SI/HI/AH/VH. The patient was engaging and seemed interested in caring for the child. The mother also didn't seem concerned over the patient's recent and current behaviors. Mother notes that she will be a support for the mother and child. Also the mother noted that she is aware of depression and will observe for signs of this. 1: depression- currently the patient is stable. One thing to note is that the patient came into the hospital on zoloft- patient denies during the interview being on any depression meds currently or in the past. Will follow up as to why the discrepancy and a little further details into her zoloft use. At this time no change in the medication though as the patient denies feeling of depression and mother feels there isn't anything to worry about at this time.
[2017-02-03] MEDS: MOTRIN PO SCH ×3 (00:05→12:24)
--- NOTE | 2017-02-03 03:47 | Discharge Summary ---
Providers - Providers Date of Admission: 02/01/17 12:37 Date of discharge: 02/03/17 (pt agrees with d/c ) Attending physician: LLUVIA MCCLAIN 02/02/17 09:00 Consult to Mental Health [CONS] Routine Reason For Exam: depression Place consult to:: psychiatry Notified:: yes Phone number called:: [phone] Was contact made?: Yes If yes, spoke with:: daphney Time called:: 16:59 Comment:: she knows abot the consult will f/u Primary care physician: MACHINE ETCHER Hospitalization Reason for admission: active labor Delivery: Episiotomy: none Laceration: none Incision: normal Other procedures: none complications: none Discharge diagnosis: IUP at term delivered baby: female Hospital course: uncomplicated vaginal delivery Pt w/o complaint VSS FF below umb Lochia small perineum intact. H&H 9.3/29.9 drop r/t blood loss from delivery Pt is asymptomatic Doing well s/p vag del; Pt states she is not SI,HI Desires to continue Zoloft P: d/c today with instructions RX provided RTO 4 weeks Pt desires tubal Condition at discharge: Good Disposition: DISCHARGED TO HOME OR SELFCARE - Discharge Diagnoses (1) Spontaneous vaginal delivery Status: Acute Comment: rto 4 weeks; tubal for BC (2) depression, current hospitalization Status: Chronic Comment: d/c home with RX for Zoloft; f/u with counseling as noted Plan - Discharge Medications Prescriptions: Docusate Sodium [Colace] 100 mg PO BID PRN #60 capsule PRN Reason: Constipation Ferrous Sulfate [Feosol 325 MG tab] 325 mg PO BID #60 tablet Ibuprofen [Motrin 800 MG tab] 800 mg PO TID PRN #30 tablet PRN Reason: Pain Sertraline [Zoloft] 50 mg PO QDAY #30 tablet - Provider Discharge Summary Activity: routine, no sex for 6 weeks, no heavy lifting 4 weeks, no strenuous exercise Diet: routine Instructions: routine Additional instructions: [] Smoking cessation referral if applicable(refer to patient education folder for contact #) [] Refer to [facility]'s [facility] [address] Booklet Call your doctor immediately for: * Fever > 100.5 * Heavy vaginal bleeding ( >1 pad per hour) * Severe persistent headache * Shortness of breath * Reddened, hot, painful area to leg or breast * Drainage or odor from incision. * Keep incision clean and dry at all times and follow doctor's instructions regarding bathing/showering - Follow up plan Follow up: PRIMARY CARE, [Primary Care Provider] - 04/01/17 (Please call [phone] to schedule your visit in 4 weeks. Take medications as prescribed. Call with concerns. )
[2017-02-03] MEDS ORDERED: BOOSTRIX IM ONE (06:00)
[2017-02-03] MEDS: ZOLOFT PO SCH (10:34)
[2017-02-03 14:20] VITALS: BP 102/60
== END 2017-02-03 13:25 | disposition home or self-care (01) | DRG 775 ==
LOC: LD 12:37 → OB 02-02 02:17
PROVIDERS: ADMIT Obstetrics & Gynecology; ATTEND Obstetrics & Gynecology
PROC: 10E0XZZ Delivery of Products of Conception, External Approach (ICD-10-PCS; principal; 2017-02-02)
PROC: 3E0S3CZ (ICD-10-PCS; 2017-02-02)
PROC: 00HU33Z Insertion of Infusion Device into Spinal Canal, Percutaneous Approach (ICD-10-PCS; 2017-02-02)
PROC: 3E0234Z Introduction of Serum, Toxoid and Vaccine into Muscle, Percutaneous Approach (ICD-10-PCS; 2017-02-02)
DX: O99.824 Streptococcus B carrier state complicating childbirth (principal); Z3A.40 40 weeks gestation of pregnancy; Z37.0 Single live birth; O99.344 Other mental disorders complicating childbirth; F32.9 Major depressive disorder, single episode, unspecified; Z23 Encounter for immunization
CPT/HCPCS: 36415; 85014; 85018; 85027; 86592; 86850; 86900; 86901; 90686; 96361; 96365; 96366; 96368; 96369; 96370; 96371; 96374; J0290; J1885; J2590; J7120